=== PATIENT | male | born 1990 | race American Indian/Alaskan Native ===

== ENCOUNTER 2018-12-19 15:28 | Emergency (ER) | payer OTHER ==
--- NOTE | 2018-12-19 15:58 | Emergency Department Report ---
Chief Complaint: Nausea/Vomiting/Diarrhea Stated Complaint: FREQUENT URINATION Time Seen by Provider: 12/19/18 15:58 MSE screening note: Focused history and physical exam performed. Due to findings the following was ordered: ED Disposition for MSE Condition: Stable
[2018-12-19 16:00] VITALS: BP 130/73
--- NOTE | 2018-12-19 16:03 | Emergency Department Report ---
ED Recheck HPI - General Chief Complaint: Nausea/Vomiting/Diarrhea Stated Complaint: DIARRHEA Time Seen by Provider: 12/19/18 15:58 Source: patient Mode of arrival: Ambulatory Limitations: No Limitations - History of Present Illness Initial Comments: 2 DAY HX DIARRHEA MISSED WORK FOR HE HAD TO LEAVE EARLY HERE FOR WORK NOTE VSS NON TOXIC AMBULATORY TAKING PO ED Review of Systems ROS: Stated complaint: FREQUENT URINATION Other details as noted in HPI Comment: All other systems reviewed and negative ED Past Medical Hx - Past Medical History Previous Medical History?: No - Surgical History Past Surgical History?: Yes Additional Surgical History: Hernia repair - Family History Family history: no significant - Social History Smoking Status: Never Smoker Substance Use Type: None ED Physical Exam - General Limitations: No Limitations General appearance: alert, in no apparent distress - Head Head exam: Present: atraumatic, normocephalic - Eye Eye exam: Present: normal appearance, PERRL - ENT ENT exam: Present: mucous membranes moist - Neck Neck exam: Present: normal inspection - Respiratory Respiratory exam: Present: normal lung sounds bilaterally - Cardiovascular Cardiovascular Exam: Present: regular rate - GI/Abdominal GI/Abdominal exam: Present: soft, normal bowel sounds - Extremities Exam Extremities exam: Present: normal inspection, full ROM - Back Exam Back exam: Present: normal inspection, full ROM - Neurological Exam Neurological exam: Present: alert, oriented X3 - Psychiatric Psychiatric exam: Present: normal affect, normal mood - Skin Skin exam: Present: warm, dry ED Course Vital Signs 12/19/18 15:57 Temperature 98.1 F Pulse Rate 63 Respiratory 18 Rate Blood Pressure 130/73 O2 Sat by Pulse 100 Oximetry ED Recheck [facility] - Core Measures Measure Exclusions: not indicated - Medical Decision Making HERE FOR WORK NOTE TO RETURN TO WORK AMBULATORY TAKING PO NON TOXIC VSS Vital Signs 12/19/18 15:57 Temperature 98.1 F Pulse Rate 63 Respiratory 18 Rate Blood Pressure 130/73 O2 Sat by Pulse 100 Oximetry Critical care attestation.: If time is entered above; I have spent that time in minutes in the direct care of this critically ill patient, excluding procedure time. ED Disposition Clinical Impression: Gastroenteritis Disposition: DC-01 TO HOME OR SELFCARE Is pt being admited?: No Does the pt Need Aspirin: No Condition: Stable Instructions: Gastroenteritis (ED) Forms: Work/School Release Form(ED) Time of Disposition: 16:02
== END 2018-12-19 16:10 | disposition home or self-care (01) ==
LOC: ED 15:28
DX: K52.9 Noninfective gastroenteritis and colitis, unspecified (principal)
CPT/HCPCS: 99282